=== PATIENT | male | born 1955 | race Caucasian/White ===

== ENCOUNTER 2018-12-13 07:11 | Outpatient (CLI) | payer OTHER ==
[2018-12-13] MEDS ORDERED: LIDOCAINE/PF 1%, 30ML ONE (08:00)
[2018-12-13] MEDS ORDERED: FENTANYL PF 100 MCG/2ML ONE (08:00)
[2018-12-13] MEDS ORDERED: MIDAZOLAM 1 MG/ML, 5ML ONE (08:00)
== END 2018-12-13 23:59 | disposition home or self-care (01) ==
LOC: ROC 07:11
PROVIDERS: ATTEND Radiology Radiation Oncology
DX: C61 Malignant neoplasm of prostate (principal)
CPT/HCPCS: 55876; 76942; 77332; 99156; A4648; J2250; J3010; J3490

== ENCOUNTER → 2019-04-19 | Outpatient (CLI) | payer OTHER | END | disposition home or self-care (01) | LOC: ROC 07:47 | PROVIDERS: ATTEND Radiology Radiation Oncology | DX: C61 Malignant neoplasm of prostate (principal) | CPT/HCPCS: 99212; G0463 ==

== ENCOUNTER → 2020-01-29 | Outpatient (CLI) | payer OTHER | END | disposition home or self-care (01) | LOC: ROC 09:41 | PROVIDERS: ATTEND Radiology Radiation Oncology | DX: Z08 Encounter for follow-up examination after completed treatment for malignant neoplasm (principal); Z85.46 Personal history of malignant neoplasm of prostate | CPT/HCPCS: 99212; G0463 ==